=== PATIENT | male | born 1975 | race Caucasian/White ===

== ENCOUNTER 2019-01-12 20:21 | Emergency (ER) | payer MEDICAID ==
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
[2019-01-12 22:26] LABS: ACETAMINOPHEN < 2 ug/mL (<2)
== END 2019-01-13 02:50 ==
LOC: FB.ED 20:21
DX: F33.2 Major depressive disorder, recurrent severe without psychotic features (principal); F10.229 Alcohol dependence with intoxication, unspecified; F19.10 Other psychoactive substance abuse, uncomplicated; E66.9 Obesity, unspecified; Z79.899 Other long term (current) drug therapy; Y90.7 Blood alcohol level of 200-239 mg/100 ml
CPT/HCPCS: 36415; 80053; 80305; 83735; 84443; 85025; 93005; 99285; G0480